=== PATIENT | female | born 1965 | race Caucasian/White ===

== ENCOUNTER 2018-10-02 18:08 | Emergency (ER) | payer SELFPAY ==
--- NOTE | 2018-10-02 18:11 | ED Physician Documentation ---
Hip Injury/Pain - HISTORIAN Historian: patient - HPI Stated Complaint: left hip pain Chief Complaint: Hip Pain Onset: days ago (10) Where: home Severity: mild Context: no injury Symptoms Prior to Fall: none Other Injuries: none Further Comments: yes (She reports she does not do much activity. She reports she is sitting to drive and sits at home. She denies any injury. No redness. No pain on sitting or laying. Mild pain with standing. She reports pain is increased with palpation. She has not taken any OTC meds for pain. No loss of sensation. She has not had any medical care "in a long time") - ROS CONST: no problems GI/: none - PAST HX Cardiac Disease: none PE Risk Factors: none Immunizations: UTD - SOCIAL HX Smoking History: cigarettes Alcohol Use: none Drug Use: none - FAMILY HX Family History: No - REVIEWED ASSESSMENTS Nursing Assessment Reviewed: Yes Vitals Reviewed: Yes <Lawanda Durant - Last Filed: 10/02/18 19:09> <Bart Cordon - Last Filed: 10/02/18 20:33> - PAST HX Allergies/Adverse Reactions: Allergies Allergy/AdvReac Type Severity Reaction Status Date / Time erythromycin base Allergy Verified 10/02/18 18:29 Home Medications: Ambulatory Orders Medication Instructions Recorded NK 10/02/18 - VITAL SIGNS Vital Signs: Vital Signs Temp Pulse Resp BP Pulse Ox 98.2 F 87 24 167/85 93 10/02/18 18:10 10/02/18 18:10 10/02/18 18:10 10/02/18 18:10 10/02/18 18:10 ED Results Lab/Radiology <Bart Cordon - Last Filed: 10/02/18 20:33> - Radiology Radiology Impressions: no fracture seen-pt has severly large body habitus (Bart Cordon) - Orders Orders: ED Orders Category Date Time Status LT HIP 2VIEW COMPLETE [RAD] Stat Exams 10/02/18 Taken Ibuprofen [Advil] Med 10/02/18 20:28 Once 600 mg PO NOW ONE Hip Injury/Pain Physical Exam - EXAM General Appearance: no acute distress, alert Extremities: hip pain on leg movement ([place] due to weight of leg ), hip tenderness (with palpation - no redness noted ), other (below the knee swelling with crusting areas. no pain to lower legs. ) Respiratory: chest non-tender, breath sounds nml CVS: reg rate & rhythm, heart sounds normal Abdomen: non-tender, no organomegaly, nml bowel sounds Skin: warm/dry Neuro/Psych: oriented x3 <Lawanda Durant - Last Filed: 10/02/18 19:09> Discharge <Lawanda Durant - Last Filed: 10/02/18 19:09> Decision to Admit: NO Decision Time: 20:33 <Bart Cordon - Last Filed: 10/02/18 20:33> Clincal Impression: unknowncause Referrals: Primary Doctor,No [Primary Care Provider] - 2 Days Comments: use heat pad crutch or cane. if not better see orthopedic surgeion-rt ed prn (Bart Cordon) Condition: Fair Disposition: 01 HOME, SELF-CARE
[2018-10-02] MEDS ORDERED: IBUPROFEN 200 MG TABLET PO ONE (20:28)
[2018-10-02 20:59] VITALS: BP 166/63
--- NOTE | 2018-10-02 23:55 | Diagnostic Imaging Report ---
JOE ROUSSEAU [facility] [address] [facility] [address] [address] Report Submission Date: Oct 02, 2018 7:37:56 PM [employer] HE[employer] AND SAF[employer] INTERN Patient Study Name: GABRIELLA NIEVES Date: Oct 02, 2018 6:49:21 PM [employer] HE[employer] AND SAF[employer] INTERN Modality Type: DX Gender: F Description: LT HIP 2VIEW COMPLETE : 67 Institution: [facility] Physician: JOE ROUSSEAU Left hip, 2 views History: Trauma Findings: Examination is severely limited by the patient's extremely large body habitus and inability to position for the study. Examination is essentially nondiagnostic. There is no hip dislocation. Impression: Severely limited study secondary to morbid obesity. Electronically signed on Oct 02, 2018 7:37:56 PM EN[employer]ONMENT[employer] HE[employer] AND SAFETY INTERN by: Simone MERCEDES
== END 2018-10-02 20:44 | disposition home or self-care (01) ==
LOC: ED 18:08
DX: M25.552 Pain in left hip (principal)
CPT/HCPCS: 99282; 99283

== ENCOUNTER 2018-10-09 08:19 | Inpatient (IN) | payer SELFPAY ==
--- NOTE | 2018-10-09 08:36 | ED Physician Documentation ---
General Adult - HISTORIAN Historian: patient, paramedics - HPI Stated Complaint: nausea/vomiting Chief Complaint: General Adult Onset: hours Timing: still present Severity: moderate Further Comments: yes (Pt is a 52 yo female with c/o LLQ pain or "fullness." Pt has not had a bm x 3 days, but says this is usual for her. Pt is audibly wheezy on presentation with SpO2 86%. Pt denies PMHx asthma/COPD and other PMHx, though she is obese with lower extremites c/w elephantiasis. Pt vomited x 1 earlier today. No fever.) - ROS CONST: other (malaise) EYES/ENT: none CVS/RESP: other (no complaint, though has decreased SpO2) GI/: abdominal pain (LLQ "fullness") MS/SKIN/LYMPH: other (leg swelling) - PAST HX Past History: other (obesity) Allergies/Adverse Reactions: Allergies Allergy/AdvReac Type Severity Reaction Status Date / Time erythromycin base Allergy Verified 10/09/18 10:28 acetaminophen [From Percocet] AdvReac Nausea/Vomi Verified 10/09/18 10:28 ting aspirin [From Percodan] AdvReac Nausea/Vomi Verified 10/09/18 10:28 ting oxycodone [From Percocet] AdvReac Nausea/Vomi Verified 10/09/18 10:28 ting Home Medications: Ambulatory Orders Medication Instructions Recorded Ibuprofen [Ibu] PRN 10/09/18 - SOCIAL HX Smoking History: cigarettes - FAMILY HX Family History: No - VITAL SIGNS Vital Signs: Vital Signs Temp Pulse Resp BP Pulse Ox 154/74 10/07/18 16:35 - REVIEWED ASSESSMENTS Nursing Assessment Reviewed: Yes Vitals Reviewed: Yes Progress - Progress Progress: CXR: Findings: Single view of the chest demonstrates a normal cardiac and mediastinal silhouette. Body habitus limits exam sensitivity. Lung west without focal infiltrate. No blunting of the costophrenic margins. Osseous structures are appropriate for age. Impression: No acute pulmonary process. X-ray abd: 3 views obtained of the abdomen. No abnormal dilation of the large or small bowel. Air and stool throughout the large bowel. No suspicious calcification projecting over the renal fossa or the lower pelvic region. Articular degenerative changes. Impression: No bowel obstruction. No suspicious calcifications by plain film sensitivity. SpO2 = 85% RA --> 96% 5 L NC Duoneb HFN Solu-medrol 125 mg IV Albuterol HFR 1 L NS IVF abd pain c/w constipation admit for hypoxia, likely COPD, to Dr. Berger. Pt reports loud snoring, likely [place], needs eval. General Adult Physical Exam - PHYSICAL EXAM GENERAL APPEARANCE: obese EENT: pharynx normal NECK: normal inspection, supple RESPIRATORY: wheezes CVS: reg rate & rhythm, heart sounds normal ABDOMEN: soft, normal bowel sounds, tenderness (LLQ) BACK: normal inspection, no CVA tenderness SKIN: warm/dry EXTREMITIES: non-tender, normal range of motion, edema NEURO: oriented X3, motor nml, sensation nml Discharge Clincal Impression: Morbid obesity, hypoxia, LLQ pain Referrals: Primary Doctor,No [Primary Care Provider] - Condition: Stable Disposition: ADMITTED INPATIENT Decision to Admit: [id number] Decision Time: 15:20
[2018-10-09] MEDS ORDERED: ONDANSETRON HCL/PF 4 MG/ 2ML VIAL IVP ONE (08:51)
[2018-10-09] MEDS ORDERED: 0.9 % SODIUM CHLORIDE 1,000 ML IV ONE ×2 (08:51→10:38)
[2018-10-09 09:24] LABS: BASOPHILS % 1.9 (0.0-1.5); EOSINOPHILS % 1.7 % (0.0-6.8); MEAN CORPUSCULAR HEMOGLOBIN 32.4 pg (28.0-34.0); MONOCYTES % 3.8 % (0.0-11.0)
[2018-10-09 09:25] LABS: NEUTROPHILS # 5.4 # k/uL (1.4-7.7)
[2018-10-09 09:28] LABS: eGFR (Non-African) > 60
--- NOTE | 2018-10-09 10:19 | Diagnostic Imaging Report ---
MICHAEL HUTCHISON [facility] [address] [facility] [address] [address] Report Submission Date: Oct 09, 2018 10:05:18 AM VOLUNTEER SERVICES SUPERVISOR Patient Study Name: GABRIELLA NIEVES Date: Oct 09, 2018 9:21:56 AM VOLUNTEER SERVICES SUPERVISOR Modality Type: DX Gender: F Description: ABDOMEN : 67 Institution: [facility] Physician: MICHAEL HUTCHISON Examination: Obstruction series History: LUQ ABD PAIN X 6 HOURS ALONG WITH EMESIS Findings: 3 views obtained of the abdomen. No abnormal dilation of the large or small bowel. Air and stool throughout the large bowel. No suspicious calcification projecting over the renal fossa or the lower pelvic region. Articular degenerative changes. Impression: No bowel obstruction. No suspicious calcifications by plain film sensitivity. Electronically signed on Oct 09, 2018 10:05:18 AM VOLUNTEER SERVICES SUPERVISOR by: Abel MERCEDES
--- NOTE | 2018-10-09 10:20 | Diagnostic Imaging Report ---
MICHAEL HUTCHISON [facility] [address] [facility] [address] [address] Report Submission Date: Oct 09, 2018 10:00:17 AM EXTRUSION DIE CORRECTOR Patient Study Name: GABRIELLA NIEVSE Date: Oct 09, 2018 9:11:39 AM EXTRUSION DIE CORRECTOR Modality Type: DX Gender: F Description: CHEST : 67 Institution: [facility] Physician: MICHAEL HUTCHISON Examination: Portable chest History: Evaluate lungs. PT STATES WHEEZING THIS MORNING Comparison exam: None provided. Findings: Single view of the chest demonstrates a normal cardiac and mediastinal silhouette. Body habitus limits exam sensitivity. Lung west without focal infiltrate. No blunting of the costophrenic margins. Osseous structures are appropriate for age. Impression: No acute pulmonary process. Electronically signed on Oct 09, 2018 10:00:17 AM EXTRUSION DIE CORRECTOR by: Abel MERCEDES
[2018-10-09] MEDS ORDERED: IPRATROPIUM/ALBUTEROL SULFATE 3 ML AMPUL.NEB NEB ONE (11:36)
[2018-10-09] MEDS ORDERED: methylPREDNISolone SOD SUCC 125 MG/2 ML VIAL IVP ONE (13:10)
[2018-10-09] MEDS ORDERED: ALBUTEROL SULFATE 2.5 MG/3 ML AMPUL.NEB NEB ONE (13:11)
[2018-10-09] MEDS ORDERED: ALBUTEROL SULFATE 2.5 MG/3 ML AMPUL.NEB NEB PRN (15:27)
[2018-10-09 17:32] LABS: APPEARANCE,URINE CLEAR (CLEAR); COLOR,URINE ORANGE (YELLOW)
[2018-10-09 17:33] LABS: OCCULT BLOOD,URINE NEGATIVE (NEGATIVE)
[2018-10-09] MEDS: SALINE FLUSH 10 ML DISP.SYRIN IV SCH (20:32)
[2018-10-09] MEDS ORDERED: IBUPROFEN 400 MG TABLET PO PRN (22:03)
--- NOTE | 2018-10-09 22:16 | History and Physical Report ---
History of Present Illnes - History of Present Illness Reason for Visit: Abdominal pain/COPD exacerbation/hypoxia History of Present Illness: This is a 52 year old morbidly obese female who has had remarkably little interaction with medical care for the past several years who [facility] with generalized abdominal pain, cough and wheezing. Her oxygen saturation was only 86% on presentation, and has come up to over 90% with supplemental oxygen. She has about a 30 pack years smoking history and currently smokes about a pack per day. She is not currently using any inhalers or a nebulizer. In addition, her family says that she snores very loudly, and she admits that s he snores so loudly that she and her have not slept in the same room for some time. Her chest X ray did not show any infiltrates. - Past Medical History Cardiac: denies: AFIB, CAD, CHF Pulmonary: COPD Heme/Onc: Iron deficiency anemia Endocrine: obesity - Past Surgical History Past Surgical History: (x3) - Past Social History Smoke: 1 pack per day Alcohol: None Drugs: None Lives: With Family Domestic Violence: Negative - Health Maintenance Health Maintenance: Cholesterol Influenza Vaccine: Current for this Influenza Season Pneumonia Vaccine: Yes - Unable to Obtain History Unable to Obtain: No Review of Systems - Review of Systems Constitutional: negative: Fever, Chills, Weakness Eyes: negative: pain ENT: negative: Ear Pain, Ear Discharge Respiratory: Cough, Shortness of Breath, SOB with Excertion. negative: Hemoptysis Cardiovascular: negative: Chest Pain, Palpitations Gastrointestinal: Nausea, Vomiting Genitourinary: negative: Dysuria Musculoskeletal: negative: Neck Pain, Shoulder Pain Skin: negative: Rash Neurological: Weakness. negative: Confusion - Medications/Allergies Allergies/Adverse Reactions: Allergies Allergy/AdvReac Type Severity Reaction Status Date / Time erythromycin base Allergy Verified 10/09/18 10:28 acetaminophen [From Percocet] AdvReac Nausea/Vomi Verified 10/09/18 10:28 ting aspirin [From Percodan] AdvReac Nausea/Vomi Verified 10/09/18 10:28 ting oxycodone [From Percocet] AdvReac Nausea/Vomi Verified 10/09/18 10:28 ting Home Medications: Home Medications Ibuprofen [Ibu] PRN 10/09/18 Current Inpatient Medications: Current Inpatient Medications Albuterol Sulfate (Ventolin) 2.5 mg NEB Q4 PRN PRN Reason: Wheezing Methylprednisolone Sodium Succinate 125 mg/ Sodium Chloride 102 mls @ 102 mls/hr IV BID [facility] Stop: 10/15/18 23:59 Ibuprofen (Advil) 800 mg PO Q6H PRN PRN Reason: PAIN OR TEMPERATURE > 101 Sodium Chloride (Normal Saline Flush) 3 ml IV BID [facility] Last Admin: 10/09/18 20:32 Dose: 3 ml Exam - Exam Vital Signs: Vital Signs (72 hours) 10/07/18 10/09/18 10/09/18 16:35 08:21 17:22 Temperature 36.5 F L 98.5 F Pulse Rate [ 73 66 Right] Respiratory 20 18 Rate Blood Pressure 154/74 Blood Pressure 154/74 161/63 125/58 [Left Arm] Blood Pressure [Right Arm] O2 Sat by Pulse 96 94 Oximetry 10/09/18 10/09/18 18:10 19:19 Temperature 98.2 F 98.0 F Pulse Rate [ 84 60 Right] Respiratory 20 20 Rate Blood Pressure Blood Pressure 143/74 [Left Arm] Blood Pressure 125/89 [Right Arm] O2 Sat by Pulse 94 93 Oximetry General: Alert, Oriented to Person, Oriented to Place, Oriented to Time, Cooperative, Morbidly Obese HEENT: Atraumatic, PERRLA, EOMI, Mouth Mucous membr. moist/[place] Neck: No: Stridor Lungs: Wheezes, Rhonchi, Prolonged Expiration, Decreased Air Movement Cardiovascular: Regular rate Murmur: No: Systolic Murmur, Diastolic Murmur Murmur Location: No: Other Abdomen: Normal bowel sounds, Soft, Other (Mild diffuse tenderness) Genitourinary: No: Other Male Genitourinary: No: Other Female Genitourinary: No: Other Integumentary: Normal, [place], Warm Extremities: Other (4+ edema and chronic venous stasis changes. No open wounds are noted) Neurological: Normal speech Psych/Mental Status: Mental status NL - Laboratory Results Laboratory Results: Laboratory Results 10/09/18 10/09/18 10/09/18 09:00 09:02 09:02 WBC 7.30 RBC 5.40 H Hgb 17.5 H Hct 52.3 H MCV 97.0 MCH 32.4 MCHC 33.5 RDW 12.8 Plt Count 297 Neut % (Auto) 73.2 Lymph % (Auto) 19.4 [place] % (Auto) 3.8 Eos % (Auto) 1.7 Baso % (Auto) 1.9 H Neut # (Auto) 5.4 Lymph # (Auto) 1.4 [place] # (Auto) 0.3 Eos # (Auto) 0.1 Baso # (Auto) 0.1 Sodium 144 Potassium 3.4 L Chloride 102 Carbon Dioxide 31 H BUN 11 Creatinine 0.67 Estimated Creat Clear 341 Est GFR ( Amer) > 60 Est GFR (Non-Af Amer) > 60 Glucose 108 H Calcium 9.0 Total Bilirubin 0.9 AST 44 ALT 27 Alkaline Phosphatase 80 NT-Pro-B Natriuret Pep 123.5 Total Protein 7.4 Albumin 4.5 Lipase Urine Color Urine Appearance Urine pH Ur Specific [place] Urine Protein Urine Ketones Urine Occult Blood Urine Nitrite Urine Bilirubin Urine Urobilinogen Ur Leukocyte Esterase Urine Glucose 10/09/18 10/09/18 09:02 10:14 WBC RBC Hgb Hct MCV MCH MCHC RDW Plt Count Neut % (Auto) Lymph % (Auto) [place] % (Auto) Eos % (Auto) Baso % (Auto) Neut # (Auto) Lymph # (Auto) [place] # (Auto) Eos # (Auto) Baso # (Auto) Sodium Potassium Chloride Carbon Dioxide BUN Creatinine Estimated Creat Clear Est GFR ( Amer) Est GFR (Non-Af Amer) Glucose Calcium Total Bilirubin AST ALT Alkaline Phosphatase NT-Pro-B Natriuret Pep Total Protein Albumin Lipase 58 Urine Color [place] Urine Appearance Clear Urine pH 6.0 Ur Specific [place] 1.020 Urine Protein 2+ H Urine Ketones Trace H Urine Occult Blood Negative Urine Nitrite Negative Urine Bilirubin 1+ H Urine Urobilinogen 1.0 Ur Leukocyte Esterase Negative Urine Glucose Negative Assessment/Plan - Assessment/Plan (1) COPD (chronic obstructive pulmonary disease) Status: Acute Current Visit: Yes Qualifiers: COPD type: COPD with acute exacerbation Qualified Code(s): J44.1 - Chronic obstructive pulmonary disease with (acute) exacerbation Assessment: Recommended smoking cessation IV steroids Nebulizer treatments (2) Hypoxia Status: Acute Current Visit: Yes Assessment: Continue supplemental oxygen (3) Morbid obesity Status: Acute Current Visit: Yes Assessment: Chronic, stable (4) Edema, lower extremity Status: Acute Current Visit: No Assessment: Chronic VTE Assessment - RISK FACTOR SCORE VTE RISK FACTOR SCORES: AGE 40-60 YEARS, LEG SWELLING, ULCERS, VARICOSE VEINS - RISK VTE MODERATE RISK: SCORE OF 2 (RISK PROXIMAL DVT 2-4%) PROPHYAXIS NEEDED (On Lovenox)
[2018-10-10] MEDS: MAGNESIUM HYDROXIDE 2,400 MG/30 ML UDC PO PRN (01:28)
[2018-10-10 05:00] VITALS: BMI 145.1
[2018-10-10 08:07] LABS: BASOPHILS % 0.5 (0.0-1.5); EOSINOPHILS % 0.7 % (0.0-6.8); MEAN CORPUSCULAR HEMOGLOBIN 32.2 pg (28.0-34.0); MONOCYTES % 3.4 % (0.0-11.0); NEUTROPHILS # 6.8 # k/uL (1.4-7.7)
[2018-10-10 08:10] LABS: eGFR (Non-African) > 60
[2018-10-10] MEDS ORDERED: 0.9 % SODIUM CHLORIDE(MINIBAG+ 100 ML IV ONE (10:05)
[2018-10-10] MEDS ORDERED: methylPREDNISolone SOD SUCC 125 MG/2 ML VIAL ONE ×2 (10:05→20:59)
[2018-10-10] MEDS: SALINE FLUSH 10 ML DISP.SYRIN IV SCH ×2 (10:25→21:00)
--- NOTE | 2018-10-10 12:47 | Inpatient Progress Note ---
Subjective - Required Recertification Statement I anticipate X number of days because-include discharge plan: 1 - Review of Systems Events since last encounter: Libby is feeling much better today. She has not been able to be weaned to room air. She has not been able to ambulate, but does not do so at home either. General: Chills. Denies: Night Sweats HEENT: Denies: Head Aches Pulmonary: Dyspnea, Cough, Other (dyspnea with minimal exertion). Denies: Pleuritic Chest Pain Cardiovascular: Denies: Chest Pain, Palpitations Gastrointestinal: Denies: Nausea, Vomiting Genitourinary: Denies: Dysuria Musculoskeletal: Denies: Neck Pain Neurological: Weakness. Denies: Change in Speech, Confusion Objective - Exam Vitals and I&O: Vital Signs Temp 97.6 F 10/10/18 09:00 Pulse 64 10/10/18 09:00 Resp 20 10/10/18 09:00 BP 133/69 10/10/18 09:00 Pulse Ox 93 10/10/18 09:00 Intake & Output 10/09/18 10/10/18 10/10/18 23:59 11:59 23:59 Intake Total 260 1190 240 Output Total 350 Balance 260 840 240 Weight 408 kg Intake: IV 20 110 Left Antecubital 20 110 Oral 240 1080 240 Output: Urine 350 Other: Voiding Method Toilet Bedside Commode # Voids 1 General: Alert, Oriented to Person, Oriented to Place, Morbidly Obese HEENT: Atraumatic, PERRLA, EOMI Neck: Supple, No JVD Lungs: Wheezes, Rales, Rhonchi, Prolonged Expiration Cardiovascular: Regular rate Abdomen: Normal bowel sounds, Soft, No tenderness, No hepatospenomegaly Extremities: Other (4++ edema and chronic venous stasis changes are noted) Neurological: Normal speech Psych/Mental Status: Mental status NL - Results Results: Laboratory Results WBC 8.20 K/ul (4.00-12.00) 10/10/18 06:20 RBC 4.98 M/ul (3.90-5.20) 10/10/18 06:20 Hgb 16.0 g/dL (12.0-16.0) 10/10/18 06:20 Hct 48.2 % (34.5-46.5) H 10/10/18 06:20 MCV 97.0 fl (80.0-100.0) 10/10/18 06:20 MCH 32.2 pg (28.0-34.0) 10/10/18 06:20 MCHC 33.2 g/dL (30.0-36.0) 10/10/18 06:20 RDW 13.0 % (11.3-14.3) 10/10/18 06:20 Plt Count 308 K/mm3 (130-400) 10/10/18 06:20 Neut % (Auto) 83.0 % (39.0-79.0) H 10/10/18 06:20 Lymph % (Auto) 12.4 % (16.0-50.0) L 10/10/18 06:20 Day % (Auto) 3.4 % (0.0-11.0) 10/10/18 06:20 Eos % (Auto) 0.7 % (0.0-6.8) 10/10/18 06:20 Baso % (Auto) 0.5 (0.0-1.5) 10/10/18 06:20 Neut # (Auto) 6.8 # k/uL (1.4-7.7) 10/10/18 06:20 Lymph # (Auto) 1.0 # k/uL (0.6-4.0) 10/10/18 06:20 Day # (Auto) 0.3 # k/uL (0.0-0.9) 10/10/18 06:20 Eos # (Auto) 0.1 # k/uL (0.0-0.6) 10/10/18 06:20 Baso # (Auto) 0.0 # k/uL (0.0-0.5) 10/10/18 06:20 Sodium 145 mmol/L (136-145) 10/10/18 06:20 Potassium 3.7 mmol/L (3.5-5.1) 10/10/18 06:20 Chloride 106 mmol/L (98-107) 10/10/18 06:20 Carbon Dioxide 29 mmol/L (22-30) 10/10/18 06:20 BUN 13 mg/dL (7-17) 10/10/18 06:20 Creatinine 0.61 mg/dL (0.52-1.04) 10/10/18 06:20 Estimated Creat Clear 826 10/10/18 06:20 Est GFR ( Amer) > 60 (60-) 10/10/18 06:20 Est GFR (Non-Af Amer) > 60 (60-) 10/10/18 06:20 Glucose 129 mg/dL (74-106) H 10/10/18 06:20 Calcium 8.5 mg/dL (8.4-10.2) 10/10/18 06:20 Total Bilirubin 0.7 mg/dL (0.2-1.3) 10/10/18 06:20 AST 49 U/L (15-46) H 10/10/18 06:20 ALT 24 U/L (13-69) 10/10/18 06:20 Alkaline Phosphatase 65 U/L (38-126) 10/10/18 06:20 NT-Pro-B Natriuret Pep 123.5 pg/mL (15.0-125.0) 10/09/18 09:00 Total Protein 6.2 g/dL (6.3-8.2) L 10/10/18 06:20 Albumin 3.6 g/dL (3.5-5.0) 10/10/18 06:20 Lipase 58 U/L (23-300) 10/09/18 09:02 Urine Color [place] (YELLOW) 10/09/18 10:14 Urine Appearance Clear (CLEAR) 10/09/18 10:14 Urine pH 6.0 (5.0 - 8.0) 10/09/18 10:14 Ur Specific [place] 1.020 (1.010-1.030) 10/09/18 10:14 Urine Protein 2+ mg/dL (NEGATIVE) H 10/09/18 10:14 Urine Ketones Trace mg/dL (NEGATIVE) H 10/09/18 10:14 Urine Occult Blood Negative (NEGATIVE) 10/09/18 10:14 Urine Nitrite Negative (NEGATIVE) 10/09/18 10:14 Urine Bilirubin 1+ (NEGATIVE) H 10/09/18 10:14 Urine Urobilinogen 1.0 Eu (0.2-1.0) 10/09/18 10:14 Ur Leukocyte Esterase Negative (NEGATIVE) 10/09/18 10:14 Urine Glucose Negative mg/dL (NEGATIVE) 10/09/18 10:14 Assessment/Plan - Assessment/Plan (1) COPD (chronic obstructive pulmonary disease) Status: Acute Current Visit: Yes Qualifiers: COPD type: COPD with acute exacerbation Qualified Code(s): J44.1 - Chronic obstructive pulmonary disease with (acute) exacerbation Assessment: Continue HFN and steroids Encouraged smoking cessation (2) Hypoxia Status: Acute Current Visit: Yes Assessment: Conitnue supplemental O2 (3) Morbid obesity Status: Acute Current Visit: Yes Assessment: Chronic (4) Edema, lower extremity Status: Acute Current Visit: No Assessment: Chronic, no cellulitis
[2018-10-10] MEDS ORDERED: 0.9 % SODIUM CHLORIDE 100 ML IV ONE (20:59)
[2018-10-11] MEDS ORDERED: methylPREDNISolone SOD SUCC 125 MG/2 ML VIAL ONE (08:04)
[2018-10-11] MEDS ORDERED: 0.9 % SODIUM CHLORIDE 100 ML IV ONE (08:04)
[2018-10-11] MEDS: SALINE FLUSH 10 ML DISP.SYRIN IV SCH (08:51)
[2018-10-11] MEDS ORDERED: methylPREDNISolone SOD SUCC 125 MG/2 ML VIAL IV SCH (09:00)
--- NOTE | 2018-10-11 09:32 | Inpatient Progress Note ---
Subjective - Required Recertification Statement I anticipate X number of days because-include discharge plan: 1 - Review of Systems Events since last encounter: Libby had several alarms on telemetry due to bradycardia. She still has not had a bowel movement. I am having social sciences chair see her so that we can get her set up for home oxygen, and also to see if she can qualify for any type of insurance such as Medicaid or something through the affordable care act. General: Denies: Chills, Night Sweats HEENT: Denies: Head Aches Pulmonary: Dyspnea, Cough Cardiovascular: Denies: Chest Pain Gastrointestinal: Denies: Nausea, Vomiting Genitourinary: Denies: Dysuria Musculoskeletal: Denies: Neck Pain Neurological: Weakness. Denies: Change in Speech, Confusion Objective - Exam Vitals and I&O: Vital Signs Temp 96.8 F L 10/11/18 07:47 Pulse 53 L 10/11/18 07:47 Resp 20 10/11/18 07:47 BP 162/80 10/11/18 07:47 Pulse Ox 96 10/11/18 07:47 Intake & Output 10/10/18 10/10/18 10/11/18 11:59 23:59 11:59 Intake Total 1190 360 240 Output Total 350 50 Balance 840 310 240 Intake: IV 110 Left Antecubital 110 Oral 1080 360 240 Output: Urine 350 50 Other: Voiding Method Bedside Commode Bedside Commode Bedside Commode # Voids 1 2 # Bowel Movements 0 General: Alert, Oriented to Person, Oriented to Place, Oriented to Time, Cooperative, Morbidly Obese HEENT: Atraumatic, PERRLA, EOMI Neck: Supple Lungs: Wheezes, Prolonged Expiration, Decreased Air Movement Cardiovascular: Regular rate Abdomen: Normal bowel sounds, Soft, No tenderness, Other (Distension due to morbid obesity) Extremities: Other (4++ edema of BLE with chronic venous stasis changes) Skin: Normal, [place] Neurological: Normal speech. No: Normal gait Psych/Mental Status: Mental status NL - Results Results: Laboratory Results WBC 8.20 K/ul (4.00-12.00) 10/10/18 06:20 RBC 4.98 M/ul (3.90-5.20) 10/10/18 06:20 Hgb 16.0 g/dL (12.0-16.0) 10/10/18 06:20 Hct 48.2 % (34.5-46.5) H 10/10/18 06:20 MCV 97.0 fl (80.0-100.0) 10/10/18 06:20 MCH 32.2 pg (28.0-34.0) 10/10/18 06:20 MCHC 33.2 g/dL (30.0-36.0) 10/10/18 06:20 RDW 13.0 % (11.3-14.3) 10/10/18 06:20 Plt Count 308 K/mm3 (130-400) 10/10/18 06:20 Neut % (Auto) 83.0 % (39.0-79.0) H 10/10/18 06:20 Lymph % (Auto) 12.4 % (16.0-50.0) L 10/10/18 06:20 [place] % (Auto) 3.4 % (0.0-11.0) 10/10/18 06:20 Eos % (Auto) 0.7 % (0.0-6.8) 10/10/18 06:20 Baso % (Auto) 0.5 (0.0-1.5) 10/10/18 06:20 Neut # (Auto) 6.8 # k/uL (1.4-7.7) 10/10/18 06:20 Lymph # (Auto) 1.0 # k/uL (0.6-4.0) 10/10/18 06:20 [place] # (Auto) 0.3 # k/uL (0.0-0.9) 10/10/18 06:20 Eos # (Auto) 0.1 # k/uL (0.0-0.6) 10/10/18 06:20 Baso # (Auto) 0.0 # k/uL (0.0-0.5) 10/10/18 06:20 Sodium 145 mmol/L (136-145) 10/10/18 06:20 Potassium 3.7 mmol/L (3.5-5.1) 10/10/18 06:20 Chloride 106 mmol/L (98-107) 10/10/18 06:20 Carbon Dioxide 29 mmol/L (22-30) 10/10/18 06:20 BUN 13 mg/dL (7-17) 10/10/18 06:20 Creatinine 0.61 mg/dL (0.52-1.04) 10/10/18 06:20 Estimated Creat Clear 826 10/10/18 06:20 Est GFR ( Amer) > 60 (60-) 10/10/18 06:20 Est GFR (Non-Af Amer) > 60 (60-) 10/10/18 06:20 Glucose 129 mg/dL (74-106) H 10/10/18 06:20 Calcium 8.5 mg/dL (8.4-10.2) 10/10/18 06:20 Total Bilirubin 0.7 mg/dL (0.2-1.3) 10/10/18 06:20 AST 49 U/L (15-46) H 10/10/18 06:20 ALT 24 U/L (13-69) 10/10/18 06:20 Alkaline Phosphatase 65 U/L (38-126) 10/10/18 06:20 NT-Pro-B Natriuret Pep 123.5 pg/mL (15.0-125.0) 10/09/18 09:00 Total Protein 6.2 g/dL (6.3-8.2) L 10/10/18 06:20 Albumin 3.6 g/dL (3.5-5.0) 10/10/18 06:20 Lipase 58 U/L (23-300) 10/09/18 09:02 Urine Color [place] (YELLOW) 10/09/18 10:14 Urine Appearance Clear (CLEAR) 10/09/18 10:14 Urine pH 6.0 (5.0 - 8.0) 10/09/18 10:14 Ur Specific [place] 1.020 (1.010-1.030) 10/09/18 10:14 Urine Protein 2+ mg/dL (NEGATIVE) H 10/09/18 10:14 Urine Ketones Trace mg/dL (NEGATIVE) H 10/09/18 10:14 Urine Occult Blood Negative (NEGATIVE) 10/09/18 10:14 Urine Nitrite Negative (NEGATIVE) 10/09/18 10:14 Urine Bilirubin 1+ (NEGATIVE) H 10/09/18 10:14 Urine Urobilinogen 1.0 Eu (0.2-1.0) 10/09/18 10:14 Ur Leukocyte Esterase Negative (NEGATIVE) 10/09/18 10:14 Urine Glucose Negative mg/dL (NEGATIVE) 10/09/18 10:14 Assessment/Plan - Assessment/Plan (1) COPD (chronic obstructive pulmonary disease) Status: Acute Current Visit: Yes Qualifiers: COPD type: COPD with acute exacerbation Qualified Code(s): J44.1 - Chronic obstructive pulmonary disease with (acute) exacerbation Assessment: Continue nebulizer treatments as well as steroids Encouraged smoking cessation Will need oxygen on discharge security services manager to see regarding ability to obtain oxygen and evaluate to see if she qualifies for any insurance plans. (2) Hypoxia Status: Acute Current Visit: Yes Assessment: Continue supplemental oxygen (3) Morbid obesity Status: Acute Current Visit: Yes Assessment: Chronic (4) Edema, lower extremity Status: Acute Current Visit: No
[2018-10-11] MEDS: predniSONE 20 MG TABLET PO SCH (21:13)
[2018-10-11] MEDS: MAGNESIUM HYDROXIDE 2,400 MG/30 ML UDC PO PRN (21:32)
[2018-10-12] MEDS: predniSONE 20 MG TABLET PO SCH (09:14)
--- NOTE | 2018-10-12 11:50 | Discharge Summary ---
Discharge Summary - Discharge Sumary History of Present Illness: This is a 52 year old female who is admitted with COPD exacerbation. She continued to require oxygen and provisions were made for her to be discharged to home with oxygen. She did not show any infiltrate on XR, and no fever was noted. Condition at Discharge: Stable Home Medications: Ambulatory Orders Medication Instructions Recorded Ibuprofen [Ibu] PRN 10/09/18 Consultations this Visit: None Procedures this Visit: None Allergies/Adverse Reactions: Allergies Allergy/AdvReac Type Severity Reaction Status Date / Time erythromycin base Allergy Verified 10/09/18 10:28 oxycodone [From Percocet] AdvReac Nausea/Vomi Verified 10/09/18 10:28 ting Patient Problems: Current Active Problems Problem Status Onset COPD (chronic obstructive pulmonary disease) Acute Hypoxia Acute Morbid obesity Acute Discharge Summary: She was started on nebulizer treatments and supplemental oxygen. She was unable to be weaned from her oxygen, and geriatric social worker was able to get her set up with oxygen on discharge. I will see her back in two weeks, and at that time, she will need referral for a sleep study. Medicaid is pending at this time, but geriatric social worker has assisted her with this.
[2018-10-12 16:47] VITALS: BP 150/60
== END 2018-10-12 11:30 | disposition home or self-care (01) | DRG 192 ==
LOC: ED 08:19 → SOUTH 18:15
PROVIDERS: ADMIT Family Medicine; ATTEND Family Medicine
DX: J44.1 Chronic obstructive pulmonary disease with (acute) exacerbation (principal); R10.32 Left lower quadrant pain; E66.01 Morbid (severe) obesity due to excess calories; R60.0 Localized edema; K59.00 Constipation, unspecified; F17.210 Nicotine dependence, cigarettes, uncomplicated
CPT/HCPCS: 71045; 74018; 80053; 81002; 83690; 83880; 85025; J2405; J2930; J7030; 94640; 96374; 96375; 99222; 99231; 99238; 99284

== ENCOUNTER 2018-10-15 16:31 | Emergency (ER) | payer SELFPAY ==
[2018-10-15] MEDS ORDERED: ACETAMINOPHEN 500 MG TABLET PO ONE (17:05)
[2018-10-15] MEDS ORDERED: KETOROLAC TROMETHAMINE 60 MG/2 ML VIAL IM ONE (17:05)
[2018-10-15 17:38] LABS: BASOPHILS % 3.7 (0.0-1.5); EOSINOPHILS % 1.1 % (0.0-6.8); NEUTROPHILS # 4.4 # k/uL (1.4-7.7)
[2018-10-15 17:59] LABS: eGFR (Non-African) > 60
--- NOTE | 2018-10-15 18:23 | ED Physician Documentation ---
General Adult - HISTORIAN Historian: patient - HPI Stated Complaint: Fever Chief Complaint: General Adult Further Comments: yes (52 year old female patient brought in via EMS from home with complaint of fever. Patient was recently transfered to [facility] on 10/07/18 for hip pain evaluation; admitted at this facility for COPD exacerbation 10/09/18- 10/12/18 and sent home on oxygen. Patient denies cough, denies body aches, requesting to be admitted.) - ROS CONST: recent illness (10/09-10/12 inpatient admission ) CVS/RESP: shortness of breath, cough GI/: none MS/SKIN/LYMPH: leg swelling (chronic venous status) - PAST HX Past History: COPD, other (morbid obesity, home 2, chronic venous stasis. ) Surgeries/Procedures: (x3) Allergies/Adverse Reactions: Allergies Allergy/AdvReac Type Severity Reaction Status Date / Time erythromycin base Allergy Verified 10/09/18 10:28 oxycodone [From Percocet] AdvReac Nausea/Vomi Verified 10/09/18 10:28 ting Home Medications: Ambulatory Orders Medication Instructions Recorded Ibuprofen [Ibu] PRN 10/09/18 - SOCIAL HX Smoking History: quit greater than 1 year (10/09) - FAMILY HX Family History: No - VITAL SIGNS Vital Signs: Vital Signs Temp Pulse Resp BP Pulse Ox 98.8 F 95 H 18 152/85 94 10/15/18 16:31 10/15/18 16:31 10/15/18 16:31 10/15/18 16:31 10/15/18 16:31 - REVIEWED ASSESSMENTS Nursing Assessment Reviewed: Yes Vitals Reviewed: Yes Progress - Progress Progress: Patient has been at inpatient and ER [place] and [facility] in the past 2 weeks. Chest xray shows new basilar infiltrate vs atelectasis which is new. Likely early pneumonia. Will place on levaquin x 7 days due to multiple hospital visits in the past 2 weeks and co-morbidities. Patient requesting admission; Sat 95 on 2L NC. ED Results Lab/Radiology - Lab Results Lab Results: Lab Results 10/15/18 10/15/18 17:10 17:10 WBC 5.90 K/ul K/ul (4.00-12.00) RBC 5.72 M/ul H M/ul (3.90-5.20) Hgb 18.3 g/dL H g/dL (12.0-16.0) Hct 55.6 % H % (34.5-46.5) MCV 97.0 fl fl (80.0-100.0) MCH 32.0 pg pg (28.0-34.0) MCHC 32.9 g/dL g/dL (30.0-36.0) RDW 13.2 % % (11.3-14.3) Plt Count 247 K/mm3 K/mm3 (130-400) Neut % (Auto) 73.7 % % (39.0-79.0) Lymph % (Auto) 13.5 % L % (16.0-50.0) [place] % (Auto) 8.0 % % (0.0-11.0) Eos % (Auto) 1.1 % % (0.0-6.8) Baso % (Auto) 3.7 H (0.0-1.5) Neut # (Auto) 4.4 # k/uL # k/uL (1.4-7.7) Lymph # (Auto) 0.8 # k/uL # k/uL (0.6-4.0) [place] # (Auto) 0.5 # k/uL # k/uL (0.0-0.9) Eos # (Auto) 0.1 # k/uL # k/uL (0.0-0.6) Baso # (Auto) 0.2 # k/uL # k/uL (0.0-0.5) Sodium 140 mmol/L mmol/L (136-145) Potassium 4.1 mmol/L mmol/L (3.5-5.1) Chloride 96 mmol/L L mmol/L (98-107) Carbon Dioxide 33 mmol/L H mmol/L (22-30) BUN 12 mg/dL mg/dL (7-17) Creatinine 0.59 mg/dL mg/dL (0.52-1.04) Estimated Creat Clear 387 Est GFR ( Amer) > 60 (60 - ) Est GFR (Non-Af Amer) > 60 (60 - ) Glucose 105 mg/dL mg/dL (74-106) Calcium 9.2 mg/dL mg/dL (8.4-10.2) Total Bilirubin 1.8 mg/dL H mg/dL (0.2-1.3) AST 48 U/L H U/L (15-46) ALT 82 U/L H U/L (13-69) Alkaline Phosphatase 87 U/L U/L (38-126) Total Protein 7.1 g/dL g/dL (6.3-8.2) Albumin 4.2 g/dL g/dL (3.5-5.0) - Radiology Radiology Impressions: 2 views of the chest History: Fever and cough Comparison: October 09, 2018 Cardiac size upper limits of normal. Interval worsening with opacities bilateral lung bases, left greater than right. Reticulo nodular interstitial prominence is seen. Multilevel thoracic spine degenerative changes. Anterior wedging compression deformities of the lower thoracic and upper lumbar vertebral bodies Impression: 1. Left basilar opacities suggestive of infiltrates and/or atelectasis. Interval worsening since the prior study. Minimal right basilar atelectasis. 21. Mild pulmonary vascular congestion. Anterior wedging and compression deformities of the lower thoracic and upper lumbar vertebral bodies is age indeterminate Electronically signed on Oct 15, 2018 5:58:36 PM EXIT BOOTH AGENT by: Angella Wright - Orders Orders: ED Orders Category Date Time Status CHEST 2VIEW [RAD] Stat Exams 10/15/18 16:41 Taken CBC/PLATELET/DIFF Stat Lab 10/15/18 17:10 Completed CMP Stat Lab 10/15/18 17:10 Completed INFLUENZA A&B Stat Lab 10/15/18 17:18 ORD Acetaminophen [Tylenol Extra Strength] Med 10/15/18 17:05 Discontinued 1,000 mg PO NOW ONE Ketorolac Tromethamine [Toradol] Med 10/15/18 17:05 Discontinued 60 mg IM NOW ONE General Adult Physical Exam - PHYSICAL EXAM GENERAL APPEARANCE: mild distress EENT: eye inspection normal, ENT inspection normal, pharynx normal, no signs of dehydration, [place], no nystagmus, TM's nml RESPIRATORY: no resp distress, chest non-tender, breath sounds normal CVS: reg rate & rhythm, heart sounds normal, equal pulses, no murmur, no gallop, PMI nml, no JVD, no friction rub, 24 ABDOMEN: soft, no organomegaly, normal bowel sounds, no abdominal bruit, no distension, other (morbid obesity) BACK: normal inspection, no CVA tenderness SKIN: normal color, warm/dry, NR, INT, PAL, DR EXTREMITIES: non-tender, normal range of motion, no evidence of injury, edema (chronic venous stasis bilater 3-4+) NEURO: oriented X3, CN's nml as tested, motor nml, sensation nml, mood/affect nml Discharge Clincal Impression: LLL pneumonia Qualifiers: Pneumonia type: due to unspecified organism Qualified Code(s): J18.1 - Lobar pneumonia, unspecified organism Referrals: Devaughn Berger MD [Primary Care Provider] - 2 Days Additional Instructions: carton and can supply supervisor your antibiotic in the morning and start it tomorrow. Vicks rub on your chest and/or feet. Cough drops as needed for cough and sore throat. Increase your fluid intake juices, hot tea, non-caffeinated beverages Vitamin C may be helpful in decreasing the length of your cold. Use a humidifier in the room where you sleep. You can also sit in a steam filled bathroom 1-2 times a day. Tylenol every 4 hours 650mg -1000mg (do not exceed 4000mg in 24 hours) as needed for fever, pain and body aches. Alternate with Ibuprofen Ibuprofen 600-800mg every 6 hours as needed for fever, pain and body aches. See your primary care doctor if your symptoms become worse or do not improve in the next 2-3 days. Condition: Stable Disposition: 01 HOME, SELF-CARE Decision to Admit: NO Decision Time: 18:42
[2018-10-15] MEDS ORDERED: LEVOFLOXACIN 250 MG TABLET PO ONE (18:46)
[2018-10-15] MEDS ORDERED: LEVOFLOXACIN 500 MG TABLET PO ONE (18:46)
[2018-10-15 19:08] VITALS: BP 147/65
--- NOTE | 2018-10-16 04:13 | Diagnostic Imaging Report ---
OBDULIO MA (INFORMATION TECHNOLOGY AUDIT MANAGER) - ER [facility] [id number] [facility] [address] [place], [place]. [address] Report Submission Date: Oct 15, 2018 5:58:36 PM NETWORK INTELLIGENCE ANALYST Patient Study Name: GABRIELLA NIEVES Date: Oct 15, 2018 5:22:16 PM NETWORK INTELLIGENCE ANALYST Modality Type: DX Gender: F Description: CHEST 2VIEW : 67 Institution: [facility] Physician: OBDULIO MA (INFORMATION TECHNOLOGY AUDIT MANAGER) - ER 2 views of the chest History: Fever and cough Comparison: October 09, 2018 Cardiac size upper limits of normal. Interval worsening with opacities bilateral lung bases, left greater than right. Reticulo nodular interstitial prominence is seen. Multilevel thoracic spine degenerative changes. Anterior wedging compression deformities of the lower thoracic and upper lumbar vertebral bodies Impression: 1. Left basilar opacities suggestive of infiltrates and/or atelectasis. Interval worsening since the prior study. Minimal right basilar atelectasis. 21. Mild pulmonary vascular congestion. Anterior wedging and compression deformities of the lower thoracic and upper lumbar vertebral bodies is age indeterminate Electronically signed on Oct 15, 2018 5:58:36 PM NETWORK INTELLIGENCE ANALYST by: Angella MERCEDES
== END 2018-10-15 19:19 | disposition home or self-care (01) ==
LOC: ED 16:31
DX: J18.1 Lobar pneumonia, unspecified organism (principal); Z72.0 Tobacco use
CPT/HCPCS: 36415; 71046; 80053; 85025; 87400; 96372; 99283; 99284; J1885